=== PATIENT | male | born 1990 | race American Indian/Alaskan Native ===

== ENCOUNTER 2025-02-13 13:21 | Emergency (ER) | payer MEDICAID ==
[2025-02-13] MEDS ORDERED: Sodium Chloride 0.9% 10 ML Syringe FLUSH PRN (13:39)
[2025-02-13 13:58] LABS: BASOPHILS ABSOLUTE AUTO 0.05 K/uL (0.00-0.10); BASOPHILS PERCENT AUTO 0.4 % (0.1-1.3); EOSINOPHILS ABSOLUTE AUTO 0.06 K/uL (0.00-0.40); EOSINOPHILS PERCENT AUTO 0.5 % (0.0-5.4); IMMATURE GRAN ABSOLUTE AUTO 0.03 K/uL (0.00-0.23); IMMATURE GRAN PERCENT AUTO 0.2 % (0.0-0.7); LYMPHOCYTES ABSOLUTE AUTO 1.91 K/uL (0.8-3.3); LYMPHOCYTES PERCENT AUTO 14.8 % (11.4-47.7); MONOCYTES ABSOLUTE AUTO 0.94 K/uL (0.20-0.90); MONOCYTES PERCENT AUTO 7.3 % (3.3-12.6); NEUTROPHILS ABSOLUTE AUTO 9.90 K/uL (1.0-7.6); NEUTROPHILS PERCENT AUTO 76.8 % (40.0-78.1); PLATELET COUNT,PLT 396 K/uL (130-375); RED BLOOD CELL COUNT 4.57 M/uL (4.14-5.76); WHITE BLOOD CELL COUNT,WBC 12.9 K/uL (3.2-11.0)
[2025-02-13 14:25] LABS: A/G RATIO 1.0 (1.2-2.2); ALANINE AMINOTRANSFERASE,ALT 56 U/L (12-78); ASPARTATE AMNIOTRANSFERASE,AST 15 U/L (15-37); BILIRUBIN TOTAL 0.4 mg/dL (0.2-1.0); BLOOD UREA NITROGEN,BUN 10 mg/dL (7-18); CARBON DIOXIDE,CO2 28 mmol/L (21-32); CHLORIDE,CL 108 mmol/L (100-108); CREATININE 0.8 mg/dL (0.8-1.3); EST CRCL DRUG DOSING (CG) 121.64 mL/min; ESTIMATED GFR 119 mL/min (>60); GLUCOSE RANDOM 126 mg/dL (74-106); POTASSIUM,K 3.5 mmol/L (3.6-5.2); PRO B-TYPE NATRIUR PEPT,BNPPRO 16 pg/mL (5-125); PROTEIN TOTAL,TP 7.4 g/dL (6.4-8.2); SODIUM,NA 145 mmol/L (140-148)
[2025-02-13] MEDS: Iopamidol 612 MG/ML 100 ML Bottle IV SCH (15:26)
[2025-02-13] MEDS: Sodium Chloride 0.9% 10 ML Syringe FLUSH ONE (15:26)
== END 2025-02-13 16:35 ==
LOC: JP.ED 13:21
DX: R04.2 Hemoptysis (principal); J45.909 Unspecified asthma, uncomplicated; F17.200 Nicotine dependence, unspecified, uncomplicated; Z91.030 Bee allergy status
CPT/HCPCS: 36415; 71046; 71260; 80053; 83880; 84484; 85025; 85379; 86140; 93005; 99285; Q9967